=== PATIENT | female | born 1950 | race Caucasian/White ===

== ENCOUNTER 2017-08-25 09:08 | Outpatient (CLI) | payer OTHER | END 2017-08-25 09:30 | disposition home or self-care (01) | LOC: TOM 09:08 | DX: K56.50 Intestinal adhesions [bands], unspecified as to partial versus complete obstruction (principal); K56.609 Unspecified intestinal obstruction, unspecified as to partial versus complete obstruction ==

== ENCOUNTER → 2020-10-19 | Emergency (ER) | payer OTHER | END | disposition home or self-care (01) | LOC: ER 12:26 | DX: M25.561 Pain in right knee (principal) ==

== ENCOUNTER 2020-11-23 20:54 | Inpatient (IN) | payer OTHER ==
[2020-11-23] MEDS ORDERED: PLAVIX75 MG PO (22:35)
[2020-11-23] MEDS ORDERED: ATORVASTATIN CA10 MG PO (22:37)
[2020-11-23] MEDS ORDERED: ZESTRIL5 MG PO (22:37)
--- NOTE | 2020-11-23 22:37 | NUR ---
PTE DESORIENTADA,LETARGICA.ESTA LLEGA EN AMBULANCIA POR SANGRADO RECTAL CUAL LE COMENZO A LAS 9PM DEL [place] DE [place].SE LE YULISA SIGNOS VITALES Y SE UBICA EN CRITICO.
--- NOTE | 2020-11-23 23:28 | NUR ---
PTE ALERTA,DESORIENTADA. SE CONECTA A MONITOR CARDIACO,SE CANALIZA EN BRAZO DERECHO PTE CANALIZADA Y EDEMA EN BRAZO MICHAEL.PTE SE RESTRIGE YA QUE ESTA TRATA DE INTERUMPIR EL TRATAMIENTO.SE LE COLOCA HOPSON. SE LE YULISA MUESTRAS DE [place] PARA TRANSFUNDIR SE LLAMA A BANCO DE [place] A LAS 10:30PM Y SE HABLA CON JOEL.SE LE ADMINISTRA MEDICAMENTO MED ORDEN MEDICA Y SE MANTIENE BAJO OBSERVACION.
--- NOTE | 2020-11-24 00:07 | NUR ---
PTE ALERTA Y ACTIVA,EN CAMA CON BARANDAS ELEVADAS,CONECTADA A MONITOR CARDIACO Y OXIMETRIA,PTE NO PRESENTA DIFICULTAD RESP,RESTRINGIDA X 2 SUPERIOR POR PREVENCION,PTE CON DX DE ALZHAIMER.AREAS DE VENOPUNCION PATENTES Y LIBRES DE EDEMA EN AMBOS BRAZOS CON DRIP DE PROTONIX,FLUIDOS DE MANTENIMIENTO.PTE CON 2 UNIDADES DE PRBC REQUISIDAS NO DISPONIBLES AL MOMENTO.MARK ANTHONY CON ORINA GILBERTO DEY.SE FELIX BAJO OBSERVACION POR CAMBIOS.
--- NOTE | 2020-11-24 02:02 | NUR ---
FAMILIAR (HIJO) LLEGA AL AREA,SE LE ORIENTA SOBRE ESTADO DE PTE,SE LE ORIENTA SOBRE PROCESO DE TRANSFUSION Y FIRMA PERMISO DEL MISMO.SE LE ORIENTA A TRAER OBJETOS PERSONALES DE ASEO DE PTE Y CONSULTA CON MEDICINA INTERNA.PTE SIN CAMBIOS AL MOMENTO.
--- NOTE | 2020-11-24 03:29 | NUR ---
SE REALIZA ASEO PERIANAL Y CAMBIO DE PANAL,PTE PRESENTA SANGRADO RECTAL PRUETT BRILLANTE,SE LE NADEEN CAMBIO DE POSICION.
--- NOTE | 2020-11-24 05:32 | NUR ---
515AM SE COMIENZA PRIMERA UNIDAD DE PRBC SIN DIFICULTAD.
--- NOTE | 2020-11-24 07:09 | NUR ---
SE RECIBE PACIENTE FEMENINA DE 70 ANOS DE EDAD DESPIERTA Y ALERTA EN POSICION SEMI SENTADA CONECTADA A MONITOR CARDIACO, SATUROMETRIA CECILE, RESTRINGIDA X2. AREA DE VENOPUNCION PATENTE EN BRAZO MICHAEL X2 CON ANGIO #18 BAJANDO 0.9NSS KVO, DRIP DE PROTONIX 80MG/100ML BAJANDO A 10ML POR HORA Y PRIMERA UNIDAD DE PRBC DE 2 ORDENADAS. AREAS DE VENOPUNCIONES SE OBSERVAN PATENTES, PRAKASH DE EDEMAS, ENROJECIMIENTO Y DOLOR AL TACTO. PACIENTE CON HOPSON INSERTADO EL CUAL SE OBSERVA PATENTE. SE YULISA SIGNOS VITALES. SE ORIENTA A PACIENTE SOBRE MEDIDAS DE SEGURIDAD, PLAN DE CUIDADO, MEDICAMENTOS ORDENADOS Y PROTOCOLO DE AREA DE CUIDADO CRITICO. SE MANTIENE PACIENTE EN OBSERVACION POR CAMBIOS SIGNIFICATIVOS DENTRO DE DELGADO CONDICION
== END 2020-11-28 21:06 | disposition home or self-care (01) | DRG 379 ==
LOC: ER 20:54 → MEDJ 11-24 10:16 → SEC-K 11-24 10:16 → MEDJ 11-24 16:02
PROVIDERS: ADMIT Internal Medicine; ATTEND Internal Medicine
PROC: 30233N1 Transfusion of Nonautologous Red Blood Cells into Peripheral Vein, Percutaneous Approach (ICD-10-PCS; 2020-11-24)
PROC: 0DJD8ZZ Inspection of Lower Intestinal Tract, Via Natural or Artificial Opening Endoscopic (ICD-10-PCS; principal; 2020-11-27)
DX: K62.5 Hemorrhage of anus and rectum (principal); G30.9 Alzheimer's disease, unspecified; F02.80 Dementia in other diseases classified elsewhere, unspecified severity, without behavioral disturbance, psychotic disturbance, mood disturbance, and anxiety; I10 Essential (primary) hypertension; Z20.822 Contact with and (suspected) exposure to COVID-19; K59.00 Constipation, unspecified; K52.9 Noninfective gastroenteritis and colitis, unspecified; D64.9 Anemia, unspecified